=== PATIENT | female | born 1985 | race African-American/Black ===

== ENCOUNTER 2016-09-02 01:34 | Inpatient (IN) | payer OTHER ==
[~2016-09-02] VITALS: Ht 162.6 cm; Wt 100.7 kg
[~2016-09-02 01:34] MED LIST: TRIAMTERENE-HC1 EAC3 PO
--- NOTE | 2016-09-02 08:18 | Admission Core Measures ---
Admission Lab Results I reviewed the following labs: Laboratory Tests 09/02 629 Urines Urine Test NEGATIVE Admission Meds I reviewed the following Meds: Current Medications Sig/Jenn Start time Last Medication Dose Stop Time Status Admin Cefazolin Sodium 2,000 MG ONCE 09/02 0000 NR (Kefzol-Ancef Inj) 09/02 2358 Heparin Sodium 5,000 UNIT ONCE 09/02 0000 NR (Porcine) 09/02 2358 Acute Coronary Syndrome Inclusion Criteria ACS Diagnosis No Inpatient Core Measures LDL Reminder: If No, please order W/I first 24hr of stay Congestive Heart Failure Inclusion Criteria CHF Diagnosis No Cerebrovascular accident Inclusion Criteria CVA/TIA Diagnosis No Inpatient Core Measures Bedside Swallow Eval Reminder: If BSE failed, place ST order Antithrombotic Reminder: Order Antithrombotic Medication by end of day 2 Antithrombotic Reminder: Document Reason Antithrombotic Not ordered by end of day 2 AFIB/Flutter Reminder: If Present, add to problem list AFIB/Flutter Reminder: Order Anticoag Medication for pts with AFIB/Flutter Atherosclerosis Reminder: If Present, add to problem list LDL Reminder: If No, please order W/I first 24hr of stay PT Order Reminder: If No, please order Venous thromboembolism Inpatient Core Measures VTE Risk Factors: Obesity, Surgery No [facility] VTE prophylaxis d/t No contraindications No VTE Pharm Prophylaxis d/t No contraindications Inclusion Criteria - Per Current guidelines, there needs to be overlap - treatment for the first 5 days of Warfarin therapy. - Parenteral Anticoagulation (IV or SC) needs to be - given along with Warfarin therapy. VTE Diagnosis No VTE Type NONE VTE Confirmed by (Test) NONE Problem List As ranked by this Provider includes Assessment & Plan 1. S/P laparoscopic sleeve gastrectomy 2. Hypertension 3. Morbid obesity HOME MEDS Home Med List Triamterene/Hydrochlorothiazid (Triamterene-Hctz 37.5-25 MG Cp) 37.5 MG-25 MG CAPSULE 1 CAP PO DAILY HTN (Reported)
--- NOTE | 2016-09-02 09:37 | Operative Report ---
Operative/Inv Procedure Report Surgery Date: 09/02/16 Name of Procedure: Laparoscopic Sleeve Gastrectomy Pre-Operative Diagnosis: Morbid Obesity BMI 41, HTN Post-Operative Diagnosis: Same Estimated Blood Loss: less than 50ml Surgeon/Package Designer: KRISTA PENG DO Anesthesia: general endotracheal tube IV Fluids: 1200 cc Drains: None Specimens: Stomach Complications: None Condition: Stable Operative Indication: This is a 31-year-old female that presented to the office for workup for bariatric surgery. After appropriate workup was completed I discussed with the patient the band, the sleeve, and the gastric bypass. The patient chose to undergo a sleeve gastrectomy. All risks including but not limited to bleeding, infection, leak, stricture, injury to surrounding bowel/esophagus/stomach/liver/ spleen, long-term reflux, DVT/PE, and mortality of 02/999 patients were discussed in detail. The patient understood everything and decided to proceed. Operative/Procedure Note Note: The patient was brought to the operating room and placed on the operating room table in supine position. Venodyne stockings were placed and adequate general endotracheal anesthesia was obtained. The patient was prepped and draped in standard surgical fashion. Began the procedure by making a 2 cm transverse incision supraumbilically and slightly to the left of the midline. Then using a 12 mm clear Visiport and a 10 mm 0 laparoscope, the abdominal cavity was accessed. Great care was taken to go through the anterior rectus sheath, the posterior rectus sheath, and through the peritoneum. Once we entered the peritoneum the abdominal cavity was insufflated to 15 mmHg. Upon initial examination no obvious gross pathology was seen. Accessory trocars were placed, 5 mm in the epigastrium for the Damian liver retractor. The retractor was inserted and the liver was retracted anteriorly exposing the hiatus, no hiatal hernia was seen. 5 mm ports were placed in the right and left upper quadrant, a 5 mm left lateral port, and a 15 mm right lateral port. Began the procedure by mobilizing the greater curvature of the stomach approximately 7 cm from the pylorus. Once the retrogastric space was reached the whole greater curvature was mobilized maintaining hemostasis using Harmonic scalpel. Full hiatal dissection was performed, no hiatal hernia was seen. Posterior adhesions were taken down using Harmonic scalpel as well. Once the stomach was adequately mobilized a 38 Upper Sorbian bougie was inserted and placed along the lesser curvature of the stomach. Once the bougie was in the appropriate position we began creating our sleeve, two 60 mm black staple loads with seamguard followed by three 60 mm purple staple loads with seamguard as well and finished with a 45 mm purple load plain. Great care was taken to leave ample room at the incisura angularis, to prevent any twisting or kinking of the sleeve, to stay lateral to the esophagogastric fat pad, and to do a full fundal excision. At the completion of the staple line the staple line was examined, it appeared intact and no obvious bleeding was noted. The bougie was removed, the sleeve was lying nicely without any twisting or kinking. The resected stomach was removed through the right lateral port site. The port and the left upper quadrant were irrigated until clear. All ports were removed under direct visualization no obvious bleeding was noted. The 15 mm port site fascia was closed using 0 Vicryl suture. The skin was closed using 4-0 Monocryl. Steri-Strips and dressings were placed. The patient was successfully extubated and transferred to the recovery room in stable condition. The patient tolerated the procedure well with no complications. Findings: No hiatal hernia, 38 Fr Bougie CC: HAWA MUÑIZ,TAYLOR
--- NOTE | 2016-09-02 09:44 | Patient Discharge Instructions ---
Discharge Instructions General Discharge Information You were seen/treated for: Morbid Obesity BMI 41, HTN You had these procedures: Surgery Date: 09/02/16 Name of Procedure: Laparoscopic Sleeve Gastrectomy Watch for these problems: FEVER>101.3, INCREASED PAIN, REDNESS/SWELLING/DRAINAGE, SHORTNESS OF BREATH, CHEST PAINS, DIZZINESS No bath, but you may shower: Yes Other wound care: OK TO REMOVE OUTER DRESSINGS. LEAVE WHITE STERI STRIPS IN PLACE. KEEP INCISIONS CLEAN & DRY. Diet Continue normal diet: No Recommended Diet: Bariatric Additional DIET Information: WEEKLY BARIATRIC STAGE DIET ADVANCEMENTS DIRECTED, TOLERATED Activity Full Activity/No Limits: No Activity Self Limited: Yes Pounds, do NOT lift more than: 10 Other activity limits: NO HEAVY LIFTING. NO STRENUOUS ACTIVITY. Acute Coronary Syndrome Inclusion Criteria At DC or during hospital stay patient has or had the following: ACS DIAGNOSIS No Discharge Core Measures Meds if any: Prescribed or Continued at Discharge Meds if any: NOT Prescribed or Continued at Discharge Congestive Heart Failure Inclusion Criteria At DC or during hospital stay patient has or had the following: CHF DIAGNOSIS No Discharge Core Measures Meds if any: Prescribed or Continued at Discharge Meds if any: NOT Prescribed or Continued at Discharge Cerebrovascular accident Inclusion Criteria At DC or during hospital stay patient has or had the following: CVA/TIA Diagnosis No Discharge Core Measures Meds if any: Prescribed or Continued at Discharge Meds if any: NOT Prescribed or Continued at Discharge Venous thromboembolism Inclusion Criteria VTE Diagnosis No VTE Type NONE VTE Confirmed by (Test) NONE Discharge Core Measures - Per Current guidelines, there needs to be overlap - treatment for the first 5 days of Warfarin therapy. - If discharged on Warfarin prior to 5 days of - overlap therapy, the patient will need to be - assessed for post discharge needs including - *Post discharge parental anticoagulation - *Warfarin and/or parental anticoagulation education - *Follow up date to check INR post discharge At least 5 days overlap therapy as Inpatient No Meds if any: Prescribed or Continued at Discharge Note: Overlap Therapy is Warfarin and Anticoagulant Meds if any: NOT Prescribed or Continued at Discharge
[2016-09-02] MEDS ORDERED: HYCET 7.5 MG-3473 ML PO (09:45)
[2016-09-02] MEDS ORDERED: PROTONIX40 M3 PO (09:45)
--- NOTE | 2016-09-02 09:52 | Surg Short-stay <48hrs Dis Sum ---
Visit Information Visit Dates Admission Date: 09/02/16 Discharge Date: 09/03/16 Surgical Short Stay DC Summary Admission Diagnosis: Morbid Obesity BMI 41, HTN Final Diagnosis: same as above s/p Surgery Date: 09/02/16 Name of Procedure: Laparoscopic Sleeve Gastrectomy Procedure(s): Surgery Date: 09/02/16 Name of Procedure: Laparoscopic Sleeve Gastrectomy Summary/Significant Findings: Electively scheduled laparoscopic sleeve gastrectomy by on 09/02/16, which went routinely. Started on stage 1 bariatric diet immediately post-op. Pain control transitioned from iv to oral medication. Blood pressure monitored during hospitalization, while holding her home medication. No lovenox indicated at the time of discharge for her pre-op risk assessment score of 2. Condition at Discharge: stable Discharge Disposition: home or self care Discharge instructions provided to patient/family: Yes Post discharge follow-up plan: one week follow up with pre-printed instructions provided stage 1 bariatric diet as tolerated. weekly advancements as tolerated.
[2016-09-02 11:22] VITALS: BP 136/80
--- NOTE | 2016-09-02 13:24 | PN- Bariatrics ---
Subjective Subjective: POST-OP NOTE: Tolerating stage 1 diet. Some nausea earlier. Ambulated once already. Some dizziness. No shortness of breath. No chest pains. Voided post-op without difficulty. Objective Vital Signs and I&Os Vital Signs Date Time Temp Pulse Resp B/P B/P Pulse O2 O2 Flow FiO2 Mean Ox Delivery Rate 09/02 1122 97.8 88 18 136/80 97 Room Air Room Air Physical Exam: General - alert & oriented x 3. comfortable. no acute distress. Lungs - clear bilaterally. no w/r/r. Cardiac - s1s2. reg. Abdomen - soft. dressings c/d/i. expected mary-incisional tenderness. no drains. Extremities - warm bilaterally. no c/c/e. calves soft and nontender b/l. athrombics active. Current Medications: Current Medications Sig/Jenn Start time Last Medication Dose Route Stop Time Status Admin Acetaminophen/ 15 ML Q6P PRN 09/02 1115 AC Hydrocodone Bitart PO Cefazolin Sodium 2,000 MG IQ8 09/02 1600 AC IV 09/03 0001 Cefazolin Sodium 2,000 MG ONCE 09/02 0000 DC IV 09/02 2359 Dextrose/Sodium 1,000 ML Q8H 09/02 1115 AC 09/02 Chloride IV 1115 Famotidine 20 MG Q12 09/02 1000 AC IV Heparin Sodium 5,000 UNIT Q8 09/02 2200 AC (Porcine) SC Heparin Sodium 5,000 UNIT ONCE 09/02 0000 DC (Porcine) SC 09/02 2359 Hydromorphone HCl 1 MG Q4P PRN 09/02 1115 AC IV Ondansetron HCl 4 MG Q6P PRN 09/02 1115 AC 09/02 IV 1138 Results Last 48 Hours of Labs: Laboratory Tests 09/02 0630 Urines Urine Test NEGATIVE Assessment/Plan Assessment/Plan This 31 year old female is POD#0 s/p laparoscopic Sleeve Gastrectomy for morbid obesity (BMI 41) and hx HTN tolerating stage 1 bariatric diet npo after midnight for possible ugi in am anti-emetics as needed for nausea pain control as ordered pepcid - gi ppx hep sc - dvt ppx ancef x 2 doses mary-operatively hold triamterene / hctz and monitor blood pressure oob/ambulation encouraged f/u am labs will d/w Core Measures/Miscellaneous Venous Thromboembolism VTE Risk Factors: Obesity, Surgery VTE Contraindications: No Contraindications VTE Diagnosis: No VTE Type: NONE VTE Confirmed by (Test): NONE Beta Beth Is Beta Beth a Home Med? No Antibiotics Is Patient on Antibiotics? Yes If Yes: prophylaxis
[2016-09-02 14:43] VITALS: BP 136/80
[2016-09-02 18:25] VITALS: BP 140/82
[2016-09-02 22:19] VITALS: BP 142/82
[2016-09-03 06:13] VITALS: BP 130/74
--- NOTE | 2016-09-03 07:01 | PN- Bariatrics ---
Subjective Subjective: No complaints. Reports "I feel great". No nausea. Tolerating stage 1 diet up until midnight. Ambulating well. No dizziness. No shortness of breath. No chest pains. Voiding well. Objective Vital Signs and I&Os Vital Signs Date Time Temp Pulse Resp B/P B/P Pulse O2 O2 Flow FiO2 Mean Ox Delivery Rate 09/03 0613 98.0 72 18 130/74 98 Room Air 09/02 2219 98.7 80 18 142/82 97 Room Air 09/02 2200 97 Room Air 09/02 1825 98.0 90 18 140/82 97 Room Air 09/02 1600 99 Room Air 09/02 1443 97.5 95 18 136/80 99 Room Air 09/02 1406 Room Air Room Air 09/02 1200 97 Room Air Room Air 09/02 1122 97.8 88 18 136/80 97 Room Air Room Air Intake & Output 09/03 0800 09/03 0000 09/02 1600 09/02 0800 09/02 0000 09/01 1600 Intake Total 2000 950 Output Total 750 400 Balance 1250 550 Intake, IV 1000 500 Intake, Oral 1000 450 Output, Urine 750 400 Patient 222 lb Weight Physical Exam: General - alert & oriented x 3. comfortable. no acute distress. Lungs - clear bilaterally. no w/r/r. Cardiac - s1s2. reg. Abdomen - soft. dressings stained, but intact. expected mary-incisional tenderness. no drains. Extremities - warm bilaterally. no c/c/e. calves soft and nontender b/l. Current Medications: Current Medications Sig/Jenn Start time Last Medication Dose Route Stop Time Status Admin Acetaminophen/ 15 ML Q6P PRN 09/02 1115 AC 09/02 Hydrocodone Bitart PO 1518 Cefazolin Sodium 2,000 MG IQ8 09/02 1600 DC 09/03 IV 09/03 0001 0059 Cefazolin Sodium 2,000 MG ONCE 09/02 0000 DC IV 09/02 2359 Dextrose/Sodium 1,000 ML Q8H 09/02 1115 r 09/03 Chloride IV 0103 Famotidine 20 MG Q12 09/02 1000 AC 09/02 IV 2139 Fentanyl Citrate 200 MCG .STK-MED ONE 09/02 0726 DC IM 09/02 0727 Heparin Sodium 5,000 UNIT Q8 09/02 2200 AC 09/03 (Porcine) SC 0615 Heparin Sodium 5,000 UNIT ONCE 09/02 0000 DC (Porcine) SC 09/02 2359 Hydromorphone HCl 1 MG Q4P PRN 09/02 1115 AC 09/02 IV 2145 Midazolam HCl 4 MG .STK-MED ONE 09/02 0726 DC IM 09/02 0727 Ondansetron HCl 4 MG Q6P PRN 09/02 1115 AC 09/02 IV 1138 Simethicone 40 MG Q4-6 PRN PRN 09/02 1630 AC 09/02 PO 1932 Results Last 48 Hours of Labs: Laboratory Tests 09/02 0630 Urines Urine Test NEGATIVE Assessment/Plan Assessment/Plan This 31 year old female is POD#1 s/p laparoscopic Sleeve Gastrectomy for morbid obesity (BMI 41) and hx HTN resume stage 1 bariatric diet cancel ugi pain controlled pepcid - gi ppx hep sc - dvt ppx hold triamterene / hctz and monitor blood pressure oob/ambulation encouraged f/u am labs d/c home today if tolerating stage 1 will d/w Core Measures/Miscellaneous Venous Thromboembolism VTE Risk Factors: Obesity, Surgery VTE Contraindications: No Contraindications VTE Diagnosis: No VTE Type: NONE VTE Confirmed by (Test): NONE Beta Beth Is Beta Beth a Home Med? No Antibiotics Is Patient on Antibiotics? Yes If Yes: prophylaxis
[2016-09-03 09:27] LABS: ABSOLUTE BASOPHIL COUNT 0 /CUMM (0.0-0.2); ABSOLUTE EOSINOPHIL COUNT 0 /CUMM (0.0-0.7); ABSOLUTE GRANULOCYTE CT 10.9 /CUMM (1.4-6.5); ABSOLUTE LYMPH COUNT 1.3 /CUMM (1.2-3.4); ABSOLUTE MONOCYTE COUNT 0.6 /CUMM (0.10-0.60); BASOPHIL % 0.1 % (0.0-2.0); EOSINOPHIL % 0 % (0-5); HEMATOCRIT 38.1 % (37-47); MEAN CORPUSCULAR HGB 29.6 PG (27.0-31.0); MEAN CORPUSCULAR HGB CONC 33.3 G/DL (33.0-37.0); MEAN PLATELET VOLUME 10.5 FL (7.4-10.4); RBC DISTRIBUTION WIDTH 13.1 % (11.5-14.5); RED BLOOD CELL CT 4.28 /CUMM (4.20-5.40); WHITE BLOOD CELL COUNT 12.8 /CUMM (4.8-10.8)
[2016-09-03 10:06] LABS: PLATELET COUNT 163 /CUMM (130-400)
== END 2016-09-03 14:36 | DRG 641 ==
LOC: SDA 01:34 → ENRESERV 09:52 → ENTRNSPT 10:46 → EDTRNSPTSTS 10:59 → 2NB 11:09 → EDTRNSPT 11:39 → CMPTRNSPT 11:51 → ENPENDDIS 09-03 08:11 → 2NB 09-03 14:36
PROVIDERS: Physician Assistant; ADMIT Surgery
PROC: 0DB64ZZ Excision of Stomach, Percutaneous Endoscopic Approach (ICD-10-PCS; principal; 2016-09-02)
DX: E66.01 Morbid (severe) obesity due to excess calories (principal); I10 Essential (primary) hypertension; Z68.41 Body mass index [BMI] 40.0-44.9, adult
CPT/HCPCS: 2NBSP; 36415; 81025; 82436; 88307; J0690; J1644; J2405; J7042